=== PATIENT | female | born 2000 | race African-American/Black ===

== ENCOUNTER 2020-08-16 00:41 | Emergency (ER) | payer OTHER ==
[~2020-08-16] VITALS: Ht 154.9 cm; Wt 54.4 kg
[2020-08-16 01:02] VITALS: BP 113/69
--- NOTE | 2020-08-16 01:02 | NUR ---
ED Nurse Note: pt walked into ED from home c/o right underbreast pain radiating to sternum 04/16, pt states it worsens with movement, onset 5 days. Pt denies any trauma to the area, pt denies any lumps or masses when palpating area, pt denies nausea, vomiting, diarrhea, chills. No shortness of breathe noted, breathing even and unlabored.
[2020-08-16] MEDS ORDERED: Mylanta II UD 30ml ORAL ONE (01:15)
--- NOTE | 2020-08-16 01:17 | Emergency Room Report ---
History of Present Illness General Chief Complaint: Pain Source: Patient Present Illness HPI Patient presents with intermittent chest pain. Sometimes is right-sided, sometimes left-sided and sometimes is substernal. It has been about 5 days since it began. It comes on and last for about an hour. It is fairly significant when she has it. Denies having heartburn or indigestion. No fevers or chills. No nausea vomiting or diarrhea. Currently the pain is rated 6/10. Sometimes she feels that is sharp and other times aching. It is somewhat positional and worsened when she lifts up her arms. She denies fevers or chills. It is not pleuritic. It does not radiate aside from moving from side to side. The patient works at [employer] and wears a mask and practices social distancing. She denies close exposure to COVID-19 positive contacts. Her job includes mixing paint. No sore throat, palpitations, dysuria, abdominal pain, shortness of breath, joint pain, rashes, depression, anxiety, visual changes, dizziness, headache. No cardiac risk factors and the patient also does not smoke or use control pills Allergies: Coded Allergies: Broccoli (Verified Allergy, Unknown, 08/16/20) COVID-19 Screening Contact w/high risk pt: No Experienced COVID-19 symptoms?: No COVID-19 Testing performed MEDICAL RECEPTIONIST MEDICAL ASSISTANT: No Patient History Past Medical History: see triage record Past Surgical History: other - Hernia surgery Social History: Denies: smoking, alcohol use, drug use Social History Narrative Works at [employer] Last Menstrual Period: 08/2020 Now: No Reviewed Nursing Documentation: PMH: Agreed; PSxH: Agreed Review of Systems All Other Systems: negative except mentioned in HPI Physical Exam Vital Signs Date Time Temp Pulse Resp B/P (MAP) Pulse Ox O2 Delivery O2 Flow Rate FiO2 08/16/20 00:51 98.4 75 16 113/69 (84) 98 Room Air Sp02 EP Interpretation: reviewed, normal General Appearance: well appearing, no apparent distress, GCS 15 Head: normocephalic Eyes: bilateral eye normal inspection, bilateral eye PERRL, bilateral eye EOMI ENT: other - Wearing a mask Neck: supple Respiratory: chest non-tender, lungs clear, normal breath sounds Cardiovascular #1: regular rate, rhythm, no edema Cardiovascular #2: 2+ radial (R) Gastrointestinal: normal inspection Musculoskeletal: back normal, normal range of motion, no calf tenderness, gait/station normal Neurologic: alert, oriented x3, grossly normal Psychiatric: mood/affect normal Skin: no rash, warm/dry Medical Decision Making Diagnostic Impression: Primary Impression: Chest pain Qualified Codes: R07.9 - Chest pain, unspecified ER Course Patient presents with intermittent chest pain for 5 days. Differential includes reflux, costochondritis, cardiac disease, pulmonary embolism amongst others. Based on history and physical pulmonary embolism extremely unlikely. Patient evaluated with EKG and chest x-ray. Patient given Tylenol and Mylanta. Based on symptom complex doubt COVID-19. Laboratory testing not indicated. EKG normal. Chest x-ray normal. Patient states pain is minimally better with Tylenol and Mylanta. She says that when she moves her arms up the pain is worsened. Based on this and the lack of help from Mylanta and Tylenol consideration for musculoskeletal pain. Motrin ordered. Patient declined to take Motrin. Discussed results with patient. Discussed the need for outpatient follow-up. I suggested that if she is concerned about COVID-19 that she seek outpatient testing. I told her I doubted that her symptoms were related to this. No apparent medical emergency at this time. Pain is improved. Patient stable for outpatient observation and treatment. EKG Diagnostic Results Rate: normal Rhythm: NSR ST Segments: no acute changes Rhythm Strip Diag. Results EP Interpretation: yes Rhythm: NSR, no PVC's, no ectopy Chest X-Ray Diagnostic Results Chest X-Ray Diagnostic Results : Chest X-Ray Ordered: Yes # of Views/Limited/Complete: 1 View Indication: Chest Pain EP Interpretation: Yes Interpretation: no consolidation, no effusion, no pneumothorax Impression: No acute disease Electronically Signed by: Electronically signed by Lázaro Eedn MD Last Vital Signs Date Time Temp Pulse Resp B/P (MAP) Pulse Ox O2 Delivery O2 Flow Rate FiO2 08/16/20 03:00 98.7 68 16 107/72 98 Room Air Status: improved Disposition: HOME, SELF-CARE Condition: Improved Scripts Ibuprofen* (MOTRIN*) 600 Mg Tablet 600 MG ORAL Q6H PRN for FOR PAIN, #16 TAB 0 Refills Prov: Lázaro Eden MD 08/16/20 Famotidine* (Pepcid 20mg tablet*) 20 Mg Tablet 20 MG ORAL DAILY for Gerd, #20 TAB 0 Refills Prov: Lázaro Eden MD 08/16/20 Referrals: NOT CHOSEN IPA/,REFERRING (PCP) Lázaro Eden MD Aug 16, 2020 01:17
--- NOTE | 2020-08-16 02:36 | NUR ---
Nurse Note: Pt refused motrin; stated it is the samething as tylenol and it will not work.
[2020-08-16] MEDS ORDERED: IBUPROFEN600 M1 ORAL (02:53)
[2020-08-16] MEDS ORDERED: FAMOTIDINE20 MG ORAL (02:53)
[2020-08-16 03:00] VITALS: BP 107/72
--- NOTE | 2020-08-16 03:00 | NUR ---
ER DISCHARGE NOTE: Patient is cleared to be discharged per ERMD, pt stated pain has improved and currently 11/16. Discharge paperwork and paper prescriptions given with instructions to f/u with PMD. pt was able to verbalize understanding, pt id band removed. Pt is alert and oriented x4, able to ambulate with steady gait. pt took all belongings.
--- NOTE | 2020-08-18 06:18 | Diagnostic Imaging Report ---
EXAM: XR Chest, 1 View CLINICAL HISTORY: CP TECHNIQUE: Frontal view of the chest. COMPARISON: No previous study. FINDINGS: Lungs: Possible minimal subsegmental atelectasis at the right lung base. Pleural space: No pneumothorax. No pleural effusion. Heart: Cardiomediastinal silhouette unremarkable. Mediastinum: See above. Bones/joints: The ribs are unremarkable. Other findings: Mild hypoaeration. IMPRESSION: 1. Mild hypoaeration. 2. Possible minimal subsegmental atelectasis at the right lung base.
== END 2020-08-16 03:00 | disposition home or self-care (01) ==
LOC: EMR 01:09
DX: R07.9 Chest pain, unspecified (principal)
CPT/HCPCS: 71045; 93005; Z7502; 99283